=== PATIENT | male | born 1970 | race Caucasian/White ===

== ENCOUNTER 2018-07-09 17:30 | Emergency (ER) | payer OTHER ==
[2018-07-09 17:45] VITALS: BP 110/75; PULSE 57; RESP 18; TEMP 98.2
[2018-07-09] MEDS ORDERED: PROPARACAINE 0.5% OPHTH DROPS 15 ML BTL BOTH EYES STA (18:00)
[2018-07-09] MEDS ORDERED: ERYTHROMYCIN 5 MG/GM OPHTH OINT 3.5 GM TUBE LEFT EYE STA (18:50)
[2018-07-09] MEDS ORDERED: DIPH,PERTUS(ACELL)TETVAC-LF 0.5 ML VIAL IM ONE (19:02)
--- NOTE | 2018-07-09 19:02 | ED ---
General Adult HPI - General Chief complaint: Eye Problems Stated complaint: Eye injury Time Seen by Provider: 07/09/18 17:46 Source: patient, RN notes reviewed Mode of arrival: ambulatory Limitations: no limitations - History of Present Illness Initial comments: 47-year-old male presents to the emergency department for a chief complaint of foreign body and cornea 1 hour. Patient states he was doing some grinding however when he felt something go into his eye. Patient states this happened about 2 weeks ago as well and he was seen at [facility]. Patient states he still feels like he has something in his eye. He denies any visual changes. He states it is painful. He states his tetanus is not up-to-date.Edith arenas has no other complaints at this time including shortness of breath, chest pain, abdominal pain, nausea or vomiting, headache, or visual changes. - Related Data Previous Rx's Medication Instructions Recorded Erythromycin Ophth Oint [Romycin 1 applic LEFT EYE QID 7 Days gm 07/09/18 Ophth Oint] Allergies Allergy/AdvReac Type Severity Reaction Status Date / Time epoxy resin Allergy Swelling Verified 07/09/18 17:45 Review of Systems ROS Statement: Those systems with pertinent positive or pertinent negative responses have been documented in the HPI. ROS Other: All systems not noted in ROS Statement are negative. Past Medical History Additional Past Medical History / Comment(s): anemia History of Any Multi-Drug Resistant Organisms: None Reported Additional Past Surgical History / Comment(s): vascectomy Past Psychological History: No Psychological Hx Reported Smoking Status: Current every day smoker Past Alcohol Use History: Occasional Past Drug Use History: Marijuana General Exam Limitations: no limitations General appearance: alert, in no apparent distress Head exam: Present: atraumatic, normocephalic, normal inspection Eye exam: Present: PERRL, EOMI, other (Corneal foreign body noted at 9:00 in the left eye. The eye was stained with proparacaine. Negative Tramaine sign. No other corneal abrasions noted.). Absent: scleral icterus, conjunctival injection, periorbital swelling ENT exam: Present: normal exam, mucous membranes moist Neck exam: Present: normal inspection, full ROM. Absent: tenderness, meningismus, lymphadenopathy Respiratory exam: Present: normal lung sounds bilaterally. Absent: respiratory distress, wheezes, rales, rhonchi, stridor Cardiovascular Exam: Present: regular rate, normal rhythm, normal heart sounds. Absent: systolic murmur, diastolic murmur, rubs, gallop, clicks Neurological exam: Present: alert, oriented X3, CN II-XII intact Psychiatric exam: Present: normal affect, normal mood Course Vital Signs 07/09/18 17:41 Temperature 98.2 F Pulse Rate 57 L Respiratory 18 Rate Blood Pressure 110/75 O2 Sat by Pulse 98 Oximetry Medical Decision Making - Medical Decision Making 7-year-old male presents to the emergency department for a chief complaint of left corneal foreign body 1 hour. Patient was grinding on his car when he felt something go in his eye. He denies any visual changes. Visual acuity intact. On exam there is a small foreign body noted at 9:00 in the left eye. Eye was numbed with proparacaine, Immediately relieved the pain. Attempted to remove foreign body with a Q-tip over this was unsuccessful. Foreign body was removed with 18-gauge needle without any difficulty. No rust ring evident. Eye was flushed with saline and reinspected. Upper and lower eyelids were flipped and no foreign bodies were noted. Eye was stained with fluorescein stain which showed small abrasion where foreign body was removed. No other corneal abrasions noted. Negative Tramaine sign. Patient was given tetanus and erythromycin in the emergency department. He did request a follow-up with ophthalmology as this happened him 2 weeks ago as well. This will be given to him. He will return if he has any worsening symptoms. Disposition Clinical Impression: Corneal foreign body Disposition: HOME SELF-CARE Condition: Good Instructions: Eye Foreign Body (ED) Additional Instructions: These follow-up with ophthalmology in one to 2 days. Use erythromycin ointment as directed. Return to the emergency department if you have any worsening symptoms. Prescriptions: Erythromycin Ophth Oint [Romycin Ophth Oint] 1 applic LEFT EYE QID 7 Days gm Is patient prescribed a controlled substance at d/c from ED?: No Referrals: Sung Nelson MD [STAFF PHYSICIAN] - 1-2 days Time of Disposition: 18:59
== END 2018-07-09 19:55 | disposition home or self-care (01) ==
LOC: EC 17:30
DX: T15.02XA Foreign body in cornea, left eye, initial encounter (principal); Z23 Encounter for immunization; F17.200 Nicotine dependence, unspecified, uncomplicated; Z91.048 Other nonmedicinal substance allergy status
CPT/HCPCS: 90471; 90715; 99283

== ENCOUNTER → 2018-10-24 | Outpatient (CLI) | payer OTHER ==
--- NOTE | 2018-10-24 14:56 | XR ---
EXAMINATION TYPE: XR knee complete LT DATE OF EXAM: 10/24/2018 CLINICAL HISTORY: Left knee pain TECHNIQUE: Three views of the left knee are obtained. COMPARISON: None. FINDINGS: There is no acute fracture/dislocation evident in left knee. Mild narrowing medial tibiofe moral compartment is present. The overlying soft tissue appears unremarkable. IMPRESSION: As above.
--- NOTE | 2018-10-24 14:56 | XR ---
EXAMINATION TYPE: XR shoulder complete RT DATE OF EXAM: 10/24/2018 CLINICAL HISTORY: Right shoulder pain TECHNIQUE: Three views of the right shoulder are obtained. COMPARISON: None. FINDINGS: There is no acute fracture/dislocation evident in the right shoulder. The acromioclavicul ar and glenohumeral joint spaces appear within normal limits. The visualized ribs are intact and unr emarkable. IMPRESSION: Unremarkable study.
--- NOTE | 2018-10-24 15:45 | XR ---
EXAMINATION TYPE: XR cervical spine comp DATE OF EXAM: 10/24/2018 COMPARISON: None HISTORY: 47-year-old male with neck pain TECHNIQUE: 6 views FINDINGS: Normal odontoid view. Moderate degenerative disc height loss with endplate spondylosis at C5-C6. Reve rsal of the normal cervical lordosis along the C4 level but with preserved alignment. Facet arthropat hy and uncovertebral joint arthropathy mid to lower cervical spine. On the left, this causes very mil d neural foraminal narrowing. On the right, there is more moderate neuroforaminal narrowing at C5-C6. IMPRESSION: 1. Moderate spondylotic change mid to lower cervical spine with greatest degree of degenerative disc disease at C5-C6 with endplate spondylosis. 2. Variable mild neuroforaminal narrowing mid to lower cervical spine, more moderate on the right at C5-C6.
== END | disposition home or self-care (01) ==
LOC: RADXRMAIN 14:29
PROVIDERS: ATTEND Family Medicine
DX: M48.02 Spinal stenosis, cervical region (principal); M50.322 Other cervical disc degeneration at C5-C6 level; M47.812 Spondylosis without myelopathy or radiculopathy, cervical region; M25.862 Other specified joint disorders, left knee
CPT/HCPCS: 72050

== ENCOUNTER → 2018-10-28 | Outpatient (CLI) | payer OTHER ==
--- NOTE | 2018-10-28 21:20 | MR ---
EXAMINATION TYPE: MR cervical spine wo con DATE OF EXAM: 10/28/2018 COMPARISON: None HISTORY: Disc degeneration TECHNIQUE: Multiplanar, multisequence images of the cervical spine were acquired. Cervical vertebra have normal alignment. There is mild decreased signal in the disks throughout the c ervical spine. There are small posterior disc bulging at C3-4-5 C5-6. Cervical spinal cord shows no e vidence of a mass. The brainstem appears normal. There is no expansion of the cord. There is no cord atrophy. There is no significant spinal stenosis. The canal measures 8.5 mm at the narrowest point w hich is see 4 5 level. There is no cervical paraspinal mass. I see no focal bone destruction. There i s visible central spinal canal of the cervical spinal cord without enlargement. This measures less th an 1 mm. This is thought to be within normal limits. IMPRESSION: Mild spondylotic changes. No spinal stenosis. No fracture seen.
--- NOTE | 2018-10-29 03:39 | MR ---
EXAMINATION TYPE: MR shoulder RT wo con DATE OF EXAM: 10/28/2018 COMPARISON: None HISTORY: Derangements TECHNIQUE: Multiplanar, multisequence imaging of the right shoulder is performed without contrast. FINDINGS: The subscapularis tendon is intact. Biceps tendon is intact. The glenoid mercedes appear intact. There i s some thickening and increased signal in the supraspinatus tendon over the humeral head. On the sagi ttal images I do not see a definite full-thickness tear. There is small amount of fluid in the subacr omial bursa. I see no bony destructive process. There is no evidence of a fracture. The AC joint is i ntact. There is no subacromial spur formation. IMPRESSION: There is slight thinning of the supraspinatus tendon but no evidence of a full-thickness tear of the rotator cuff. No fracture. Small amount of fluid suggestive of mild bursitis.
== END ==
LOC: RADMRIMAIN 08:47
PROVIDERS: ATTEND Family Medicine
DX: M47.812 Spondylosis without myelopathy or radiculopathy, cervical region (principal); M24.811 Other specific joint derangements of right shoulder, not elsewhere classified
CPT/HCPCS: 72141

== ENCOUNTER 2018-12-01 11:30 | Emergency (ER) | payer OTHER ==
[2018-12-01 11:42] VITALS: TEMP 97.9
[2018-12-01] MEDS ORDERED: DIPH,PERTUS(ACELL)TETVAC-LF 0.5 ML VIAL IM ONE (11:46)
[2018-12-01] MEDS ORDERED: AMOXIC-POT CLAV 875MG STARTER 2 EACH TABLET PO STA (11:47)
[2018-12-01] MEDS ORDERED: LIDOCAINE 1% INJ 10MG/ML (20 ML MDV) SQ ONE (12:08)
--- NOTE | 2018-12-01 12:12 | XR ---
EXAMINATION TYPE: XR finger RT DATE OF EXAM: 12/01/2018 COMPARISON: NONE HISTORY: Laceration injury with pain. TECHNIQUE: 3 views right second finger are acquired. FINDINGS: No acute fracture or dislocation is seen. Joint spaces are maintained. Along palmar surface at base of second distal phalanx there is irregular linear lucency consistent with known laceration without suspicious metallic or radiodense foreign body identified. IMPRESSION: As above.
--- NOTE | 2018-12-01 13:16 | ED ---
General Adult HPI - General Chief complaint: Animal Bite Stated complaint: Finger Lac Time Seen by Provider: 12/01/18 11:46 Source: patient, RN notes reviewed Mode of arrival: ambulatory Limitations: no limitations - History of Present Illness Initial comments: 47-year-old male presents to the emergency determine for chief complaint of laceration by dog bite one hour ago. Patient was playing with his dog when he went to reach for the toy at the same time as the dog and accidentally bit his right finger. Patient states that his dog is up-to-date on all immunizations including rabies. Patient is up-to-date on tetanus as of 5 months ago. Patient denies any difficulty moving his right second digit. Denies any other complains at this time. Patient has no other complaints at this time including shortness of breath, chest pain, abdominal pain, nausea or vomiting, headache, or visual changes. - Related Data Previous Rx's Medication Instructions Recorded Amoxicillin/Potassium Clav 1 tab PO Q12HR #20 tab 12/01/18 [Augmentin 875-125 Tablet] Allergies Allergy/AdvReac Type Severity Reaction Status Date / Time epoxy resin Allergy Swelling Verified 12/01/18 12:40 Review of Systems ROS Statement: Those systems with pertinent positive or pertinent negative responses have been documented in the HPI. ROS Other: All systems not noted in ROS Statement are negative. Past Medical History Additional Past Medical History / Comment(s): anemia History of Any Multi-Drug Resistant Organisms: None Reported Additional Past Surgical History / Comment(s): vasectomy Past Psychological History: No Psychological Hx Reported Smoking Status: Current every day smoker Past Alcohol Use History: Occasional Past Drug Use History: Marijuana General Exam Limitations: no limitations General appearance: alert, in no apparent distress Head exam: Present: atraumatic, normocephalic, normal inspection Eye exam: Present: normal appearance, PERRL, EOMI. Absent: scleral icterus, conjunctival injection, periorbital swelling ENT exam: Present: normal exam, mucous membranes moist Neck exam: Present: normal inspection, full ROM. Absent: tenderness, meningismus, lymphadenopathy Respiratory exam: Present: normal lung sounds bilaterally. Absent: respiratory distress, wheezes, rales, rhonchi, stridor Cardiovascular Exam: Present: regular rate, normal rhythm, normal heart sounds. Absent: systolic murmur, diastolic murmur, rubs, gallop, clicks Extremities exam: Present: full ROM (Full range of motion of all joints in the right second digit including DIP, PIP, and MCP joint), normal capillary refill (Capillary refill less than 2 seconds in all digits of the right hand including the right second digit, radial pulse 2+), other (Patient has a 2 cm laceration noted to the right finger pad. This is flap-like and presentation. Adipose tissue exposed.) Neurological exam: Present: alert, oriented X3, CN II-XII intact Psychiatric exam: Present: normal affect Course Vital Signs 12/01/18 11:38 Temperature 97.9 F Pulse Rate 71 Respiratory 16 Rate Blood Pressure 94/40 O2 Sat by Pulse 98 Oximetry Procedures - Laceration Laceration #1 Consent Obtained: verbal consent Indication: laceration Site: other (2nd finger pad right hand) Description: flap Depth: simple, single layer (adipose tissue exposed) Anesthetic Used: lidocaine 1% Anesthesia Technique: local infiltration Amount (mls): 2 Pre-repair: wound explored, irrigated extensively (with 1 L sterile water, followed up saline pressure irrigation, betadine used after) Type of Sutures: other (2) Size of Sutures: 5-0 Number of Sutures: 2 Technique: simple, interrupted Patient Tolerated Procedure: well, no complications Medical Decision Making - Medical Decision Making 47-year-old male presents to the emergency department for chief clinic lace ration to the right second digit. This occurred by dog bite. X-ray obtained which is negative for foreign body. Wound was cleaned thoroughly with sterile water, saline, Betadine. Full range of motion in the right second digit. Wound is stellate in nature and adipose tissue exposed. Therefore I did have to loosely approximate the laceration however did allow for room for drainage as it is a dog bite. Patient given Augmentin. Up-to-date on tetanus. Dog is up-to-date on rabies immunizations. Discussed return precautions including monitoring and returning if there are any signs of infection. Patient will follow up with primary care and return in 7-10 days for suture removal. Disposition Clinical Impression: Dog bite, Laceration Disposition: HOME SELF-CARE Condition: Good Instructions (If sedation given, give patient instructions): Animal Bite (ED) Additional Instructions: Please take Motrin and Tylenol for pain. Take antibiotic as directed. Follow up with primary care in 1-2 days. Return if you have worsening symptoms or signs of infection such as spreading or streaking redness. Return in 7-10 days to have sutures removed. Prescriptions: Amoxicillin/Potassium Clav [Augmentin 875-125 Tablet] 1 tab PO Q12HR #20 tab Is patient prescribed a controlled substance at d/c from ED?: No Referrals: Celena Crews MD [Primary Care Provider] - 1-2 days Time of Disposition: 13:15
[2018-12-01 13:25] VITALS: BP 122/78; PULSE 84; RESP 18
== END 2018-12-01 13:25 | disposition home or self-care (01) ==
LOC: EC 11:30
DX: S61.210A Laceration without foreign body of right index finger without damage to nail, initial encounter (principal); F17.200 Nicotine dependence, unspecified, uncomplicated; Z91.048 Other nonmedicinal substance allergy status; Z53.29 Procedure and treatment not carried out because of patient's decision for other reasons; W54.0XXA Bitten by dog, initial encounter
CPT/HCPCS: 12001; 99283

== ENCOUNTER 2018-12-16 18:08 | Emergency (ER) | payer OTHER ==
[2018-12-16 18:15] VITALS: BP 121/78; PULSE 87; RESP 18; TEMP 98.2
[2018-12-16] MEDS ORDERED: TOBRAMYCIN 0.3% OPHTH DROPS 5 ML BTL RIGHT EYE STA (18:42)
--- NOTE | 2018-12-16 18:44 | ED ---
Eye Problem HPI - General Chief complaint: Eye Problems Stated complaint: Right Eye Time Seen by Provider: 12/16/18 18:09 Source: patient, RN notes reviewed Mode of arrival: ambulatory Limitations: no limitations - History of Present Illness Initial comments: 47-year-old male presents emergency department chief complaint of right eye irritation. Patient states has been on and off for last few days. 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 Patient states that he gets. Side more gets really dry and discomfort. He states there is no current blurred vision. Denies any pain with ocular movement no current symptoms. Patient denies any foreign body sensation. - Related Data Previous Rx's Medication Instructions Recorded Amoxicillin/Potassium Clav 1 tab PO Q12HR #20 tab 12/01/18 [Augmentin 875-125 Tablet] Allergies Allergy/AdvReac Type Severity Reaction Status Date / Time epoxy resin Allergy Swelling Verified 12/16/18 18:15 Review of Systems ROS Statement: Those systems with pertinent positive or pertinent negative responses have been documented in the HPI. ROS Other: All systems not noted in ROS Statement are negative. Past Medical History Additional Past Medical History / Comment(s): anemia History of Any Multi-Drug Resistant Organisms: None Reported Additional Past Surgical History / Comment(s): vasectomy Past Psychological History: No Psychological Hx Reported Smoking Status: Current every day smoker Past Alcohol Use History: Occasional Past Drug Use History: Marijuana General Exam Limitations: no limitations General appearance: alert, in no apparent distress Head exam: Present: atraumatic, normocephalic, normal inspection Eye exam: Present: PERRL, EOMI, conjunctival injection (Mild right). Absent: normal appearance, scleral icterus, periorbital swelling Pupils: Present: other (No uptake noted with Wood's lamp and fluroscein dye) ENT exam: Present: normal exam, normal oropharynx, mucous membranes moist Neck exam: Present: normal inspection. Absent: tenderness, meningismus, lymphadenopathy Respiratory exam: Present: normal lung sounds bilaterally. Absent: respiratory distress, wheezes, rales, rhonchi, stridor Course Vital Signs 12/16/18 18:12 Temperature 98.2 F Pulse Rate 87 Respiratory 18 Rate Blood Pressure 121/78 O2 Sat by Pulse 99 Oximetry Medical Decision Making - Medical Decision Making 47-year-old male presented for right eye irritation. Patient has underlying conjunctivitis. There was no foreign body. Patient has no blurred vision. Patient be given Tobrex eyedrops in emergency department. Patient also advised to use [id number] refresh artificial tears for dry eyes. Patient will follow-up with ophthalmology return parameters were discussed. Disposition Clinical Impression: Conjunctivitis Disposition: HOME SELF-CARE Condition: Stable Instructions (If sedation given, give patient instructions): Conjunctivitis (ED) Additional Instructions: Use Tobrex eyedrops 1 drop every 4 hours while awake for 7 days. Please return to the Emergency Department if symptoms worsen or any other concerns. Is patient prescribed a controlled substance at d/c from ED?: No Referrals: Celena Crews MD [Primary Care Provider] - 1-2 days Js Carbajal MD [STAFF PHYSICIAN] - 1-2 days
== END 2018-12-16 19:01 | disposition home or self-care (01) ==
LOC: EC 18:08
DX: H10.9 Unspecified conjunctivitis (principal); F17.200 Nicotine dependence, unspecified, uncomplicated; Z91.09 Other allergy status, other than to drugs and biological substances
CPT/HCPCS: 99283

== ENCOUNTER → 2019-08-22 | Outpatient (CLI) | payer OTHER ==
--- NOTE | 2019-08-22 16:28 | US ---
EXAMINATION TYPE: US kidneys/renal and bladder DATE OF EXAM: 08/22/2019 COMPARISON: NONE CLINICAL HISTORY: R31.9 HEMATURIA. Microscopic hematuria, No pain EXAM MEASUREMENTS: Right Kidney: 9.9 x 4.4 x 3.5 cm Left Kidney: 9.8 x 4.0 x 4.5 cm Right Kidney: Medial anechoic lesion seen at hilum - 0.7 x 0.7 cm. Prominent pyramids. Left Kidney: No hydronephrosis or masses seen. Prominent pyramids. Bladder: Moderately distended, anechoic Bilateral Jets not seen There is no evidence for hydronephrosis at this point in time. No nephrolithiasis is seen. Probable small cyst right kidney. The urinary bladder is anechoic. Bilateral ureteral jets are seen. IMPRESSION: Probable small cyst right kidney.
== END | disposition home or self-care (01) ==
LOC: RADUSWWP 16:00
PROVIDERS: ATTEND Family Medicine
DX: R31.9 Hematuria, unspecified (principal)
CPT/HCPCS: 76770

== ENCOUNTER → 2023-03-03 | Outpatient (CLI) | payer OTHER ==
[2023-03-03 16:10] LABS: ALT 11 U/L (10-49); AST 20 U/L (14-35); Albumin 4.6 d/dL (3.8-4.9); Albumin/Globulin Ratio 2.09 Ratio (1.60-3.17); Alkaline Phosphatase 76 U/L (41-126); BUN/Creat Ratio 9.42 Ratio (12.00-20.00); Blood Urea Nitrogen 11.3 mg/dL (9.0-27.0); Calcium 9.4 mg/dL (8.7-10.3); Carbon Dioxide 24.6 mmol/L (21.6-31.8); Chloride 106 mmol/L (96-109); Chol/HDL Ratio 4.48 Ratio; Globulin 2.2 d/dL (1.6-3.3); Glucose 91 mg/dL (70-110); LDL Cholesterol,Calculated 106.1 mg/dL (0.0-131.0); Potassium 5.2 mmol/L (3.5-5.5); Sodium 141 mmol/L (135-145); Total Bilirubin 0.2 mg/dL (0.3-1.2); Total Protein 6.8 d/dL (6.2-8.2)
[2023-03-03 16:33] LABS: Basophils # (A) 0.05 X 10*3/uL (0.00-0.10); Basophils % (A) 0.7 %; Eosinophils # (A) 0.18 X 10*3/uL (0.04-0.35); Eosinophils % (A) 2.4 %; HCT 43.9 % (39.6-50.0); Lymphocytes # (A) 2.22 X 10*3/uL (0.90-5.00); MCH 28.4 pg (27.0-32.0); MCHC 31.9 d/dL (32.0-37.0); Mean Platelet Volume 10.5 FL (9.5-12.2); Monocytes # (A) 0.68 X 10*3/uL (0.20-1.00); Monocytes % (A) 9.2 %; NRBC Per 100 WBC 0 X 10*3/uL (0.00-0.01); Neutrophils # (A) 4.24 X 10*3/uL (1.80-7.70); Neutrophils % (A) 57.4 %; Platelet Count 281 X 10*3/uL (140-440); RBC 4.93 X 10*6/uL (4.40-5.60); RDW 13.7 % (11.5-14.5); WBC 7.39 X 10*3/uL (4.50-10.00)
== END | disposition home or self-care (01) ==
LOC: LABWHC1 08:48
PROVIDERS: ATTEND Family Medicine
DX: Z00.00 Encounter for general adult medical examination without abnormal findings (principal); Z11.59 Encounter for screening for other viral diseases
CPT/HCPCS: 36415; 80053; 80061; 84443; 85025; 86803